=== PATIENT | male | born 1970 | race Caucasian/White ===

== ENCOUNTER → 2021-03-06 09:19 | Outpatient (BNVA) | payer MEDICAID, SELFPAY | PROVIDERS: Family Provider Family Medicine; PCP Family Medicine; Visit Provider Family Medicine | DX: Z00.00 Encounter for general adult medical examination without abnormal findings (principal); F10.10 Alcohol abuse, uncomplicated; F41.1 Generalized anxiety disorder | CPT/HCPCS: 80053; 85025 ==

== ENCOUNTER → 2021-06-26 14:20 | Outpatient (BNVA) | payer MEDICAID, SELFPAY | PROVIDERS: Family Provider Family Medicine; PCP Family Medicine; Visit Provider Family Medicine | DX: F10.10 Alcohol abuse, uncomplicated (principal) | CPT/HCPCS: 36416; 82962 ==

== ENCOUNTER → 2021-11-08 09:44 | Outpatient (BNVA) | payer MEDICAID, SELFPAY | PROVIDERS: Family Provider Family Medicine; PCP Family Medicine; Visit Provider Family Medicine | DX: M16.11 Unilateral primary osteoarthritis, right hip (principal) | CPT/HCPCS: 73502 ==

== ENCOUNTER 2022-01-14 10:20 | Emergency (ER) | payer MEDICAID, SELFPAY ==
--- NOTE | 2022-01-14 10:27 | ECG_ITS ---
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 Measurements Intervals [place] Rate: 53 P: 65 MS: 145 QRS: 57 QRSD: 98 T: 62 QT: 439 QTc: 413 Interpretive Statements SINUS BRADYCARDIA WITH SINUS ARRHYTHMIA Compared to ECG 02/28/2019 15:23:16 Sinus rhythm no longer present Prolonged QT interval no longer present Electronically Signed On 01-14-2022 12:58:19 CDT by Adriana Galvan M.D. [id number]
--- NOTE | 2022-01-14 10:30 | W.ED.SYNCOPE ---
HPI - Syncope General: Chief Complaint: Fall Stated Complaint: BACK/RIGHT HIP PAIN S/P FALL Time Seen by Provider: 01/14/22 10:22 Source: patient and EMS Mode of arrival: EMS Limitations: no limitations History of Present Illness: 51-year-old male who states that he was walking to the gas station this morning states that he put on a sweater and sweatpants and on his walk he felt like he got too hot and had a near syncopal event. He states that he did go to the ground he does not believe he had a full syncopal event but felt very lightheaded denies any chest pain or headache states he feels improved since being out he currently. No vomiting or diarrhea. Associated symptoms: Deny abdominal pain, chest pain, fever(s), headache(s) or nausea Review of Systems Const: Denies: fever(s), chills, body aches or change in appetite Eyes: Denies: blurry vision or eye discomfort ENMT: Denies: throat pain or dental pain Card: Denies: chest pain Resp: Denies: dyspnea GI: Denies: abdominal pain, nausea, vomiting or diarrhea : Denies: dysuria Musc: Denies: neck pain or back pain Skin/Breast: Denies: rash Neuro: Denies: headache(s) Psych: Denies: depression Blaise/Lymph: Denies: easy bruising All/Imm: Denies: urticaria PFSH ED PFSH: Medical History Alcohol abuse Arthritis of right hip Chronic lumbar radiculopathy Generalized anxiety disorder Impetigo Social History Smoking and tobacco status: current every day smoker Alcohol intake: current Adopted: No Caregiver/support person: No Lives independently: Yes Current occupational status: unemployed History of recent travel: No Current gender identity: Male Physical Exam Const: COMMON NORMALS: no acute distress, patient oriented x3 and healthy appearing HENMT: COMMON NORMALS: normocephalic and atraumatic HEAD & SCALP: normocephalic and atraumatic Eye: COMMON NORMALS: Equal, round and reactive pupils present and EOMs intact bilaterally PUPIL: Yes Equal, round and reactive pupils present Neck/C-Spine: COMMON NORMALS: full ROM and supple Chest: COMMONS NORMALS: normal inspection of the chest and normal palpation of entire chest wall Resp: COMMON NORMALS: normal respiratory effort, No retractions, No use of accessory muscles and clear to auscultation bilaterally AUSCULTATION: clear to auscultation bilaterally Cardio: COMMON NORMALS: regular rate, regular rhythm and No murmurs present (Cardio) RATE: regular rate RHYTHM: regular rhythm GI: COMMON NORMALS: Normal to inspection, nondistended, normoactive bowel sounds present, Soft to palpation, non-tender and no masses PALPATION: Yes Soft to palpation Extremity: COMMON NORMALS: normal to inspection and full ROM Neuro: COMMON NORMALS: patient oriented x3, moves all extremities and no focal motor deficits Psych: COMMON NORMALS: mental status grossly normal, Normal thought process present and cooperative THOUGHT PROCESS: Normal thought process present Skin: COMMON NORMALS: no rashes or lesions noted and no wounds GENERAL SKIN EXAM: no rashes or lesions noted Course Vital Signs: Vital signs: Vital Signs Pulse Rate 52 L 01/14/22 10:45 Respiratory Rate 12 01/14/22 10:45 Blood Pressure 144/100 01/14/22 10:45 Pulse Oximetry 100 01/14/22 10:45 MDM - Syncope Medical Decision Making Patient presents here with a near syncopal event. Patient is well-appearing here lab work is all normal he feels much improved he is stable for discharge she is to return if worsening he understands agrees to plan. Lab Data : 01/14/22 11:35 01/14/22 11:35 Laboratory Results WBC 8.6 10^3/uL (4.0-10.0) 01/14/22 11:35 RBC 5.21 10^6/uL (4.1-5.3) 01/14/22 11:35 Hgb 16.7 g/dL (11.7-16.6) H 01/14/22 11:35 Hct 50.0 % (42.0-52.0) 01/14/22 11:35 MCV 96.0 fl (80-94) H 01/14/22 11:35 MCH 32.1 pg (28.0-34.0) 01/14/22 11:35 MCHC 33.4 g/dL (30.0-36.0) 01/14/22 11:35 RDW 11.9 % (12.1-15.1) L 01/14/22 11:35 Plt Count 211 10^3/cmm (130-400) 01/14/22 11:35 MPV 11.2 fL (7.4-10.4) H 01/14/22 11:35 Neut % (Auto) 66.0 % 01/14/22 11:35 Lymph % (Auto) 25.6 % 01/14/22 11:35 [place] % (Auto) 6.8 % 01/14/22 11:35 Eos % (Auto) 0.6 % 01/14/22 11:35 Baso % (Auto) 0.8 % 01/14/22 11:35 Neut # (Auto) 5.66 10^3/uL (1.8-7.7) 01/14/22 11:35 Lymph # (Auto) 2.2 10^3/uL (0.8-4.8) 01/14/22 11:35 [place] # (Auto) 0.6 10^3/uL (0.2-0.9) 01/14/22 11:35 Eos # (Auto) 0.1 10^3/uL (0.0-0.8) 01/14/22 11:35 Baso # (Auto) 0.1 10^3/uL (0.0-0.1) 01/14/22 11:35 Nucleated RBC % (auto) 0 % 01/14/22 11:35 Nucleated RBCs # 0.0 /100WBC 01/14/22 11:35 Sodium 141 mmol/L (136-145) 01/14/22 11:35 Potassium 4.0 mmol/L (3.5-5.1) 01/14/22 11:35 Chloride 106 mmol/L (98-107) 01/14/22 11:35 Carbon Dioxide 27 mmol/L (22-29) 01/14/22 11:35 Anion Gap 12.0 (5-19) 01/14/22 11:35 BUN 9 mg/dL (6-20) 01/14/22 11:35 Creatinine 0.8 mg/dL (0.7-1.2) 01/14/22 11:35 GFR Calculation 102.3 mL/min (90-130) 01/14/22 11:35 Glucose 100 mg/dL (65-115) 01/14/22 11:35 Calculated Osmolality 291 mOsm/kg (285-295) 01/14/22 11:35 Calcium 9.7 mg/dL (8.5-10.5) 01/14/22 11:35 Total Bilirubin 0.5 mg/dL (0.15-1.2) 01/14/22 11:35 ALT 41 U/L (0-41) 01/14/22 11:35 Alkaline Phosphatase 92 IU/L (40-130) 01/14/22 11:35 Total Protein 8.0 g/dL (6.6-8.7) 01/14/22 11:35 Albumin 4.4 g/dL (3.5-5.2) 01/14/22 11:35 Globulin 3.6 g/dL (1.3-4.6) 01/14/22 11:35 EKG Data EKG 1: I personally reviewed and interpreted this EKG as follows: EKG interpretation date: 01/14/22 EKG interpretation time: 10:38 Interpretation: sinus fili hr [address] or t wave abnormalities qrs 98 qtc 421 Discharge Plan Discharge Patient Disposition: Home Clinical Impression: Near syncope Condition: Stable Prescriptions: No Action pantoprazole [Protonix] 40 mg tablet,delayed release (DR/EC) 40 mg PO DAILY 90 Days Qty: 90 3RF alprazolam 0.5 mg tablet 0.5 mg PO TID PRN (Reason: anxiety) 30 Days Qty: 75 5RF carisoprodol 350 mg tablet 350 mg PO BID 30 Days Qty: 60 5RF lactulose [Enulose] 10 gram/15 mL solution See Rx Instructions .ROUTE .COMPLEX Qty: 1200 5RF Dose Instruction: TAKE 30 ML (2 TABLESPOONFULL) BY MOUTH TWICE DAILY Rx Instructions: TAKE 30 ML (2 TABLESPOONFULL) BY MOUTH TWICE DAILY pregabalin [Lyrica] 100 mg capsule 100 mg PO BID Qty: 60 5RF hydrocodone-acetaminophen 10-325 mg tablet 1 tab PO Q6H PRN (Reason: pain) 30 Days Qty: 120 0RF Discharge Orders: Discharge ED (Routine); Ordered 01/14/22 Ordered By: Catherine Hernandez Referrals: Ulisses Monroe MD [Primary Care Provider] - 1-3 days Discharge Diet: Advance as tolerated Discharge Activity: Resume usual activity Patient Instructions: Near Syncope (ED) Coding Level of Care Code ED Schedule Checker for Ashlee Fwerin Exam Comprehensive
[2022-01-14] MEDS: sodium chloride 0.9% 1,000 ML 999 ML IV (10:43)
[2022-01-14 10:45] VITALS: BP 144/100; PULSE 52; RESP 12; O2SAT 100; BMI 22.3
[2022-01-14 11:48] LABS: Basophils # 0.1 10^3/uL (0.0-0.1); Basophils % 0.8 %; Eosinophils # 0.1 10^3/uL (0.0-0.8); Eosinophils % 0.6 %; Hemoglobin 16.7 g/dL (11.7-16.6); Lymphocytes # 2.2 10^3/uL (0.8-4.8); Lymphocytes % 25.6 %; Mean Corpuscular HGB Conc 33.4 g/dL (30.0-36.0); Mean Corpuscular Hemoglobin 32.1 pg (28.0-34.0); Mean Platelet Volume 11.2 fL (7.4-10.4); Monocytes # 0.6 10^3/uL (0.2-0.9); Monocytes % 6.8 %; Neutrophils # 5.66 10^3/uL (1.8-7.7); Nucleated Red Blood Cells % 0 %; Platelet Count 211 10^3/cmm (130-400); Red Blood Count 5.21 10^6/uL (4.1-5.3); Red Cell Distribution Width 11.9 % (12.1-15.1); White Blood Count 8.6 10^3/uL (4.0-10.0)
[2022-01-14 12:06] LABS: Alanine Aminotransferase 41 U/L (0-41); Albumin Level 4.4 g/dL (3.5-5.2); Alkaline Phosphatase 92 IU/L (40-130); Aspartate Amino Transferase 46 U/L (0-40); Blood Urea Nitrogen 9 mg/dL (6-20); Calcium 9.7 mg/dL (8.5-10.5); Carbon Dioxide 27 mmol/L (22-29); Chloride 106 mmol/L (98-107); Globulin 3.6 g/dL (1.3-4.6); Glomerular Filtration Rate 102.3 mL/min (90-130); Glucose 100 mg/dL (65-115); Osmolality Calculated 291 mOsm/kg (285-295); Sodium 141 mmol/L (136-145); Total Bilirubin 0.5 mg/dL (0.15-1.2)
[2022-01-14 12:09] VITALS: BP 144/100; PULSE 46; RESP 15; O2SAT 100
== END 2022-01-14 12:18 | disposition home or self-care (01) ==
PROVIDERS: Emergency Provider Emergency Medicine; PCP Family Medicine
DX: R55 Syncope and collapse (principal)
CPT/HCPCS: 80053; 85025; 93005; 96360; 99283; J7030

== ENCOUNTER 2022-01-15 21:15 | Emergency (ER) | payer MEDICAID, SELFPAY ==
[2022-01-15 21:29] VITALS: BP 100/69; PULSE 114; RESP 16; TEMP 37; O2SAT 97
--- NOTE | 2022-01-15 21:38 | XRR_ITS ---
PROCEDURE INFORMATION: Exam: XR Right Hip Exam date and time: 01/15/2022 10:30 PM Age: 51 years old Clinical indication: Hip pain; Right hip; Patient HX: Hip xray was ordered pelvis wasn't specified; Additional info: Fall, pain TECHNIQUE: Imaging protocol: Radiologic exam of the Right hip. Views: 1 view hip with pelvis when performed. COMPARISON: CR XR hip RT 2-3V wo/w pel* [id number] 11/08/2021 9:48 AM FINDINGS: Bones/joints: Severe right hip osteoarthritis. Soft tissues: Unremarkable. XR/XR hip RT 2-3V wo/w pel* [id number] IMPRESSION: 1. Negative for fracture or dislocation 2. Severe right hip osteoarthritis.
--- NOTE | 2022-01-15 21:39 | ED_ITS ---
HPI - Fall General: Chief Complaint: Fall Stated Complaint: hip pain Time Seen by Provider: 01/15/22 21:38 History of Present Illness: 51-year-old male patient comes in today for injury to the right hip. Patient has pain on the lateral hip at the trochanter area on palpation. Patient is homeless. He has been looking for a place to live. Patient appears in no acute distress. Associated symptoms-after fall: Denies chest pain Review of Systems General: Reports: 10 or more systems reviewed and unremarkable except in HPI and below Card: Denies: chest pain Resp: Denies: dyspnea Musc: Reports: joint pain (Right hip pain) [facility] ED PFSH: Medical History Alcohol abuse Arthritis of right hip Chronic lumbar radiculopathy Generalized anxiety disorder Impetigo Social History Smoking and tobacco status: current every day smoker Alcohol intake: current Adopted: No Caregiver/support person: No Lives independently: Yes Current occupational status: unemployed History of recent travel: No Current gender identity: Male Physical Exam Const: COMMON NORMALS: alert HENMT: COMMON NORMALS: atraumatic HEAD & SCALP: atraumatic Neck/C-Spine: COMMON NORMALS: full ROM Resp: COMMON NORMALS: normal respiratory effort and clear to auscultation bilaterally AUSCULTATION: clear to auscultation bilaterally Cardio: COMMON NORMALS: regular rate and regular rhythm RATE: regular rate RHYTHM: regular rhythm Back/Pelvis: COMMON NORMALS: thoracic and lumbar spine normal to inspection Extremity: RIGHT LOWER EXTREMITY: Yes hip joint (Right lateral hip tenderness) Right hip: Yes inspection, Yes palpation and Yes ROM Neuro: SENSORIUM/ORIENTATION: Yes alert Course Vital Signs: Vital signs: Vital Signs Temperature 98.6 F 01/15/22 21:29 Pulse Rate 114 H 01/15/22 21:29 Respiratory Rate 16 01/15/22 21:29 Blood Pressure 100/69 01/15/22 21:29 Pulse Oximetry 97 01/15/22 21:29 MDM - Fall Medical Decision Making Patient comes in today for complaints of right hip pain. On exam patient has normal range of motion of the hip. Patient has tenderness to palpation. Distal pulses and sensation are intact. Differential diagnosis includes contusion, fracture, dislocation. No fracture was noted on the x-rays. Reviewed exam with patient with recommendations for acetaminophen or ibuprofen for pain. Activity as tolerated. Follow-up with primary care for further instruction. Discharge Plan Discharge Patient Disposition: Home Clinical Impression: Arthritis of hip Contusion of hip, right Qualifiers: Encounter type: initial encounter Qualified Code(s): S70.01XA - Contusion of right hip, initial encounter Condition: Stable Prescriptions: No Action pantoprazole [Protonix] 40 mg tablet,delayed release (DR/EC) 40 mg PO DAILY 90 Days Qty: 90 3RF alprazolam 0.5 mg tablet 0.5 mg PO TID PRN (Reason: anxiety) 30 Days Qty: 75 5RF carisoprodol 350 mg tablet 350 mg PO BID 30 Days Qty: 60 5RF lactulose [Enulose] 10 gram/15 mL solution See Rx Instructions .ROUTE .COMPLEX Qty: 1200 5RF Dose Instruction: TAKE 30 ML (2 TABLESPOONFULL) BY MOUTH TWICE DAILY Rx Instructions: TAKE 30 ML (2 TABLESPOONFULL) BY MOUTH TWICE DAILY pregabalin [Lyrica] 100 mg capsule 100 mg PO BID Qty: 60 5RF hydrocodone-acetaminophen 10-325 mg tablet 1 tab PO Q6H PRN (Reason: pain) 30 Days Qty: 120 0RF Discharge Orders: Discharge ED (Routine); Ordered 01/15/22 Ordered By: Toney Pink Referrals: Ulisses Monroe MD [Primary Care Provider] - Discharge Diet: Usual diet Discharge Activity: Increase activity as tolerated Patient Instructions: Contusion in Adults (ED) Activity Restrictions/Additional Instructions: Home and rest. Activity as tolerated. Use ice or heat to the area for comfort. Use acetaminophen or ibuprofen for pain. Coding Level of Care Code ED Physical Therapy Technician for Ashlee Fwd Exam Detailed
[2022-01-15] MEDS: ibuprofen 200 mg Tablet 400 MG PO (21:56)
== END 2022-01-15 22:57 | disposition home or self-care (01) ==
PROVIDERS: Emergency Provider Nurse Practitioner Family; PCP Family Medicine
DX: M16.11 Unilateral primary osteoarthritis, right hip (principal); S70.01XA Contusion of right hip, initial encounter; W19.XXXA Unspecified fall, initial encounter; Z59.02 Unsheltered homelessness
CPT/HCPCS: 73502; 99283

== ENCOUNTER 2023-10-24 16:42 | Emergency (ER) | payer MEDICAID, SELFPAY ==
[2023-10-24 16:46] VITALS: BP 119/78; PULSE 111; RESP 18; TEMP 36.6; O2SAT 98
--- NOTE | 2023-10-24 17:06 | ED.C_ITS ---
HPI - Psych 2 General: Chief Complaint: Psychiatric Symptoms Stated Complaint: MHE, sent from dr palacios Time Seen by Provider: 10/24/23 16:55 Source: patient Mode of arrival: ambulatory Limitations: no limitations History of Present Illness: 53-year-old male sent here from the [facility] for psych eval patient states he has been upset because not been able to get his hydrocodone or his Xanax. He states that he did call the pharmacy and made threats to burn it down he states that he was just angry he was not being truthful he denies SI or HI. Associated symptoms: Deny depression Review of Systems 2 Const: Denies: fever(s), chills, body aches or change in appetite Eyes: Denies: blurry vision or eye discomfort ENMT: Denies: throat pain or dental pain Card: Denies: chest pain Resp: Denies: dyspnea GI: Denies: abdominal pain, nausea, vomiting or diarrhea : Denies: dysuria Musc: Denies: neck pain or back pain Skin/Breast: Denies: rash Neuro: Denies: headache(s) Psych: Denies: depression Blaise/Lymph: Denies: easy bruising All/Imm: Denies: urticaria PFSH ED 2 PFSH: Medical History Spinal stenosis at L4-L5 level Arthritis of right hip Impetigo Alcohol abuse Generalized anxiety disorder Chronic lumbar radiculopathy Social History Smoking and tobacco/nicotine status: current every day tobacco/nicotine user Alcohol intake: current Substance/Drug Use: never Adopted: No Caregiver/support person: No Lives independently: Yes Current occupational status: unemployed Do you think of yourself as: Straight/Heterosexual Current gender identity: Male Physical Exam 2 Const: COMMON NORMALS: no acute distress, patient oriented x3 and healthy appearing HENMT: COMMON NORMALS: normocephalic and atraumatic HEAD & SCALP: n ormocephalic and atraumatic Eye: COMMON NORMALS: Equal, round and reactive pupils present and EOMs intact bilaterally PUPIL: Yes Equal, round and reactive pupils present Neck/C-Spine: COMMON NORMALS: full ROM and supple Chest: COMMONS NORMALS: normal inspection of the chest and normal palpation of entire chest wall Resp: COMMON NORMALS: normal respiratory effort, No retractions, No use of accessory muscles and clear to auscultation bilaterally AUSCULTATION: clear to auscultation bilaterally Cardio: COMMON NORMALS: regular rate, regular rhythm and No murmurs present (Cardio) RATE: regular rate RHYTHM: regular rhythm GI: COMMON NORMALS: Normal to inspection, nondistended, normoactive bowel sounds present, Soft to palpation, non-tender and no masses PALPATION: Yes Soft to palpation Extremity: COMMON NORMALS: normal to inspection and full ROM Neuro: COMMON NORMALS: patient oriented x3, moves all extremities and no focal motor deficits Psych: COMMON NORMALS: mental status grossly normal, Normal thought process present and cooperative THOUGHT PROCESS: Normal thought process present Skin: COMMON NORMALS: no rashes or lesions noted and no wounds GENERAL SKIN EXAM: no rashes or lesions noted Course 2 Vital Signs: Vital signs: Vital Signs Temperature 97.9 F 10/24/23 16:46 Pulse Rate 111 H 10/24/23 16:46 Respiratory Rate 18 10/24/23 16:46 Blood Pressure 119/78 10/24/23 16:46 Pulse Oximetry 98 10/24/23 16:46 Oxygen Delivery Me thod Room Air 10/24/23 16:46 MDM - Psych Medical Decision Making Patient presents for some anxiety along with anger over not getting his narcotics filled. He is denying SI and HI patient was seen by psychiatrist Dr. Garcia who agrees patient does not require inpatient he is stable for discharge. Medical Records I reviewed the patient's medical records. Lab Data I reviewed the patient's lab results. 10/24/23 18:16 10/24/23 18:16 Laboratory Results WBC 7.92 10^3/uL (3.29-11.43) 10/24/23 18:16 RBC 4.39 10^6/uL (3.85-5.65) 10/24/23 18:16 Hgb 14.30 g/dL (11.27-16.99) 10/24/23 18:16 Hct 41.9 % (37-53) 10/24/23 18:16 MCV 95.4 fl (82-101) 10/24/23 18:16 MCH 32.6 pg (27-33) 10/24/23 18:16 MCHC 34.1 g/dL (30-55) 10/24/23 18:16 RDW 12.1 % (12.1-15.1) 10/24/23 18:16 Plt Count 258 10^3/cmm (157-399) 10/24/23 18:16 MPV 9.8 fL (7.4-10.4) 10/24/23 18:16 Neut % (Auto) 41.7 % 10/24/23 18:16 Lymph % (Auto) 48.9 % 10/24/23 18:16 [place] % (Auto) 6.9 % 10/24/23 18:16 Eos % (Auto) 1.4 % 10/24/23 18:16 Baso % (Auto) 1.0 % 10/24/23 18:16 Neut # (Auto) 3.30 10^3/uL (1.8-7.7) 10/24/23 18:16 Lymph # (Auto) 3.9 10^3/uL (0.8-4.8) 10/24/23 18:16 [place] # (Auto) 0.6 10^3/uL (0.2-0.9) 10/24/23 18:16 Eos # (Auto) 0.1 10^3/uL (0.0-0.8) 10/24/23 18:16 Baso # (Auto) 0.1 10^3/uL (0.0-0.1) 10/24/23 18:16 Nucleated RBC % (auto) 0 % 10/24/23 18:16 Nucleated RBCs # 0.0 /100WBC 10/24/23 18:16 Sodium 142 mmol/L (136-145) 10/24/23 18:16 Potassium 3.8 mmol/L (3.5-5.1) 10/24/23 18:16 Chloride 107 mmol/L (98-107) 10/24/23 18:16 Carbon Dioxide 23 mmol/L (22-29) 10/24/23 18:16 Anion Gap 15.8 (5-19) 10/24/23 18:16 BUN 21 mg/dL (6-20) H 10/24/23 18:16 Creatinine 0.9 mg/dL (0.7-1.2) 10/24/23 18:16 GFR Calculation 88.6 mL/min (90-130) L 10/24/23 18:16 Glucose 81 mg/dL (65-115) 10/24/23 18:16 Calculated Osmolality 296 mOsm/kg (285-295) H 10/24/23 18:16 Calcium 9.4 mg/dL (8.5-10.5) 10/24/23 18:16 Total Bilirubin 0.4 mg/dL (0.15-1.2) 10/24/23 18:16 AST 48 U/L (0-40) H 10/24/23 18:16 ALT 35 U/L (0-41) 10/24/23 18:16 Alkaline Phosphatase 73 U/L (40-130) 10/24/23 18:16 Total Protein 8.0 g/dL (6.6-8.7) 10/24/23 18:16 Albumin 4.4 g/dL (3.5-5.2) 10/24/23 18:16 Globulin 3.6 g/dL (1.3-4.6) 10/24/23 18:16 Salicylates < 0.3 mg/dL (3-10) L 10/24/23 18:16 Urine Opiates Screen Negative ng/mL (Negative) 10/24/23 17:15 Acetaminophen < 5.0 ug/mL (10-30) L 10/24/23 18:16 Ur Barbiturates Screen Negative ng/mL (Negative) 10/24/23 17:15 Ur Phencyclidine Scrn Negative ng/mL (Negative) 10/24/23 17:15 Ur Amphetamines Screen Positive ng/mL (Negative) H 10/24/23 17:15 U Benzodiazepines Scrn Negative ng/mL (Negative) 10/24/23 17:15 Urine Cocaine Screen Negative ng/mL (Negative) 10/24/23 17:15 U Marijuana (THC) Screen Positive ng/mL (Negative) H 10/24/23 17:15 Ethyl Alcohol < 10 mg/dL (0-10) 10/24/23 18:16 No radiology studies performed this visit Discharge Plan Discharge Patient Disposition: Home Clinical Impression: Generalized anxiety disorder Condition: Stable Prescriptions: No Action baclofen 20 mg tablet 20 mg PO TID PRN (Reason: muscle spasm) Qty: 60 0RF lactulose [Enulose] 10 gram/15 mL solution See Rx Instructions .ROUTE .COMPLEX Qty: 1200 5RF Dose Instruction: TAKE 30 ML (2 TABLESPOONFULL) BY MOUTH TWICE DAILY Rx Instructions: TAKE 30 ML (2 TABLESPOONFULL) BY MOUTH TWICE DAILY buspirone 10 mg tablet 10 mg PO TID 15 Days Qty: 45 0RF Rx Instructions: trial for nerves instead of xanax (alprazolam) alprazolam 0.5 mg tablet 0.5 mg PO TID PRN (Reason: anxiety) 30 Days Qty: 90 2RF hydrocodone-acetaminophen 10-325 mg tablet 1 tab PO Q6H PRN (Reason: pain) 30 Days Qty: 120 0RF pantoprazole [Protonix] 40 mg tablet,delayed release (DR/EC) 40 mg PO DAILY 90 Days Qty: 90 3RF pregabalin 150 mg capsule 150 mg PO BID Qty: 60 5RF Discharge Orders: Discharge ED (Routine); Ordered 10/24/23 Ordered By: Catherine Hernandez Referrals: Ulisses Palacios MD [Primary Care Provider] - 1-3 days Discharge Diet: Advance as tolerated Discharge Activity: Resume usual activity Patient Instructions: Anxiety (ED) Coding Level of Care Code ED Hairspring Assembler for Ashlee Aceves
[2023-10-24 17:55] LABS: Amphetamines Screen Urine Positive (Negative); Barbiturates Screen Urine Negative (Negative); Benzodiazepines Screen Urine Negative (Negative); Cocaine Screen Urine Negative (Negative); Opiate Screen Urine Negative (Negative); PCP Screen Urine Negative (Negative); THC Screen Urine Positive (Negative)
[2023-10-24 18:21] LABS: Basophils # 0.1 10^3/uL (0.0-0.1); Eosinophils # 0.1 10^3/uL (0.0-0.8); Eosinophils % 1.4 %; Hematocrit 41.9 % (37-53); Lymphocytes # 3.9 10^3/uL (0.8-4.8); Lymphocytes % 48.9 %; Mean Corpuscular HGB Conc 34.1 g/dL (30-55); Mean Corpuscular Hemoglobin 32.6 pg (27-33); Mean Corpuscular Volume 95.4 fl (82-101); Mean Platelet Volume 9.8 fL (7.4-10.4); Monocytes # 0.6 10^3/uL (0.2-0.9); Monocytes % 6.9 %; Neutrophils % 41.7 %; Nucleated Red Blood Cells % 0 %; Platelet Count 258 10^3/cmm (157-399); Red Blood Count 4.39 10^6/uL (3.85-5.65); Red Cell Distribution Width 12.1 % (12.1-15.1); White Blood Count 7.92 10^3/uL (3.29-11.43)
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
[2023-10-24 19:31] LABS: Alanine Aminotransferase 35 U/L (0-41); Albumin Level 4.4 g/dL (3.5-5.2); Alkaline Phosphatase 73 U/L (40-130); Anion Gap 15.8 (5-19); Aspartate Amino Transferase 48 U/L (0-40); Blood Urea Nitrogen 21 mg/dL (6-20); Calcium 9.4 mg/dL (8.5-10.5); Carbon Dioxide 23 mmol/L (22-29); Chloride 107 mmol/L (98-107); Globulin 3.6 g/dL (1.3-4.6); Glomerular Filtration Rate 88.6 mL/min (90-130); Glucose 81 mg/dL (65-115); Osmolality Calculated 296 mOsm/kg (285-295); Potassium 3.8 mmol/L (3.5-5.1); Sodium 142 mmol/L (136-145); Total Bilirubin 0.4 mg/dL (0.15-1.2)
[2023-10-24 19:32] LABS: Acetaminophen < 5.0 ug/mL (10-30); Alcohol Level < 10 mg/dL (0-10); Salicylate < 0.3 mg/dL (3-10)
[2023-10-24 20:46] VITALS: RESP 16
== END 2023-10-24 20:48 | disposition home or self-care (01) ==
PROVIDERS: Emergency Provider Emergency Medicine; PCP Family Medicine
DX: F41.1 Generalized anxiety disorder (principal); Z72.0 Tobacco use
CPT/HCPCS: 36415; 80053; 80306; 80307; 85025; 99283

== ENCOUNTER 2023-12-25 17:31 | Outpatient (CLI) | payer MEDICAID, SELFPAY ==
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
== END 2023-12-25 17:32 | disposition home or self-care (01) ==
LOC: RAD 17:33
PROVIDERS: PCP Family Medicine; Visit Provider Family Medicine
DX: S02.602A Fracture of unspecified part of body of left mandible, initial encounter for closed fracture (principal); Y04.2XXA Assault by strike against or bumped into by another person, initial encounter
CPT/HCPCS: 70100

== ENCOUNTER 2024-07-13 21:17 | Emergency (ER) | payer MEDICAID, SELFPAY ==
[2024-07-13 21:19] VITALS: BP 134/80; PULSE 102; RESP 18; TEMP 36.7; O2SAT 97; BMI 21.5
--- NOTE | 2024-07-13 21:25 | XRR_ITS ---
PROCEDURE INFORMATION: Exam: XR Right Hip Exam date and time: 07/13/2024 9:47 PM Age: 53 years old Clinical indication: Injury or trauma; Fall; Blunt trauma (contusions or hematomas); Right; Hip and pelvic region; Additional info: Fall/rt hip pain, w/ pelvis TECHNIQUE: Imaging protocol: Radiologic exam of the right hip. Views: 1 view hip with pelvis when performed. COMPARISON: CR XR hip RT 2-3V wo/w pel* [id number] 01/15/2022 10:30 PM FINDINGS: Bones/joints: Nhfd-[id number]-latg-right degenerative changes of the hip joints. No acute displaced fractures. Soft tissues: Unremarkable. Intraperitoneal space: The pelvis is intact. XR/XR hip RT 2-3V wo/w pel* [id number] IMPRESSION: As above.
--- NOTE | 2024-07-13 21:28 | ED_ITS ---
HPI - Extremity Problem General: Chief complaint: Extremity Injury, Lower Stated complaint: HIP PAIN Time Seen by Provider: 07/13/24 21:19 Source: patient and police Mode of arrival: EMS Limitations: no limitations History of Present Illness: Patient is a 53-year-old male with past medical history of right hip arthritis and chronic lumbar radiculopathy who presents to the emergency department by EMS from custodial due to right hip pain onset an hour and a half prior to arrival. Patient states he always deals with right hip pain, he takes [place] for pain. States tonight that he had an incident where he stumbled and caught himself, however he tweaked his right hip in the process and states he felt a pop. Has been ambulatory since, secondary to pain. States the pain is shooting down his right leg. EMS did not report any noticing of rotation or shortening of the leg. He has no previous surgical history or fractures of that right hip. No distal sensory changes noted. He did not hit his head and no other injury suffered with the fall. States he took Tylenol about an hour prior to coming in. MD Complaint: extremity pain and joint pain Onset (ago): hour(s) Pain Consistency: constant Location: right and lower extremity Quality: sharp Radiation: distal Exacerbating factors: range of motion, weight bearing, walking, exertion and palpation Associated symptoms: Deny chest pain, fever(s) or rash Related Data Previous Rx's Medication Instructions Recorded lactulose 10 gram/15 mL oral See Rx Instructions .Route 11/09/21 solution (Enulose) .COMPLEX #1,200 mL baclofen 20 mg tablet 20 mg PO TID PRN muscle spasm #60 05/29/23 tabs buspirone 10 mg tablet 10 mg PO TID 15 days #45 tabs 06/17/23 pantoprazole 40 mg tablet,delayed 40 mg PO DAILY 90 days #90 tabs 12/20/23 release (Protonix) pregabalin 150 mg capsule 150 mg PO BID #60 caps 01/16/24 alprazolam 0.5 mg tablet 0.5 mg PO TID PRN anxiety 30 days 05/23/24 #90 tabs hydrocodone 10 mg-acetaminophen 1 tab PO Q6H PRN pain 30 days #120 06/10/24 325 mg tablet tabs prednisone 20 mg tablet 40 mg (2 x 20 mg) PO ONCE 5 days 07/13/24 #10 tabs Allergies Allergy/AdvReac Type Severity Reaction Status Date / Time Penicillins Allergy Mild rash Verified 06/10/24 14:09 lactulose AdvReac Mild unknown Verified 06/10/24 14:09 Review of Systems General: Reports: 10 or more systems reviewed and unremarkable except in HPI and below Const: Denies: fever(s) or chills Card: Denies: chest pain Resp: Denies: dyspnea or productive cough GI: Denies: abdominal pain, nausea, vomiting or diarrhea : Denies: flank pain Musc: Reports: extremity pain (Right lower extremity) and joint pain (Right hip); Denies: neck pain, back pain, extremity swelling, joint swelling, joint redness, joint warmth, limited range of motion or muscle weakness Skin/Breast: Denies: rash Neuro: Denies: headache(s), numbness in extremities or weakness in extremities PFSH ED PFSH: Medical History Spinal stenosis at L4-L5 level Arthritis of right hip Impetigo Alcohol abuse Generalized anxiety disorder Chronic lumbar radiculopathy Social History Smoking and tobacco/nicotine status: current every day tobacco/nicotine user Alcohol intake: current Substance/Drug Use: current Adopted: No Caregiver/support person: No Lives independently: Yes Current occupational status: unemployed Do you think of yourself as: Straight/Heterosexual Current gender identity: Male Physical Exam Const: COMMON NORMALS: no acute distress, patient oriented x3, no limitations, healthy appearing, alert and well nourished HENMT: COMMON NORMALS: normocephalic and atraumatic HEAD & SCALP: normocephalic and atraumatic Neck/C-Spine: COMMON NORMALS: full ROM, supple and no meningeal signs Resp: COMMON NORMALS: normal respiratory effort, No use of accessory muscles and clear to auscultation bilaterally AUSCULTATION: clear to auscultation bilaterally Cardio: COMMON NORMALS: regular rate and regular rhythm RATE: regular rate RHYTHM: regular rhythm Back/Pelvis: COMMON NORMALS: thoracic and lumbar spine normal to inspection and no thoracic nor lumbar tenderness LUMBAR SPINE/LOWER BACK: Yes straight leg raise positive right OTHER: Mild reproducible tenderness to palpation to the right paralumbar muscles. Extremity: COMMON NORMALS: normal to inspection, capillary refill normal, no joint enlargement and no clubbing, cyanosis or edema NARRATIVE EXTREMITY EXAM: Pain with active and passive range of motion at the right hip. Endorsing reproducible tenderness to very light palpation over the right hip and anterior proximal thigh. No shortening or rotation of the right lower extremity. Distal pulses 2+. Neuro: COMMON NORMALS: patient oriented x3, moves all extremities, no focal motor deficits and no sensory deficits noted SENSORIUM/ORIENTATION: Yes alert MENINGEAL SIGNS: Yes no meningeal signs Skin: COMMON NORMALS: no rashes or lesions noted GENERAL SKIN EXAM: no rashes or lesions noted Course Vital Signs: Vital signs: Vital Signs Temperature 98.0 F 07/13/24 21:19 Pulse Rate 102 H 07/13/24 21:19 Respiratory Rate 18 07/13/24 21:19 Blood Pressure 134/80 07/13/24 21:19 Pulse Oximetry 97 07/13/24 21:19 Oxygen Delivery Me thod Room Air 07/13/24 21:19 MDM - Extremity (Nontraumatic) Medical Decision Making Patient has history of arthritis as well as lumbar radiculopathy. [facility] of his right [facility]. X-ray negative for any fracture or dislocation. Was some evidence of degenerative changes, potentially some arthritis and this could also pose as a lumbar radiculopathy. He notes some somewhat improvement after receiving steroid shot here, will treat with short course of steroids back at custodial and have him follow-up with primary care for any further concerns. He agrees with plan for discharge at this time. He will be discharged back to custodial. Lab Data Radiology Impressions Hip/Pelvis X-Ray 07/13/24 21:25 IMPRESSION: As above. All radiology interpretation(s) finalized by discharge Discharge Plan Discharge Patient Disposition: Home Clinical Impression: Arthritis of right hip Condition: Stable Prescriptions: New prednisone 20 mg tablet 40 mg PO ONCE 5 Days Qty: 10 0RF No Action baclofen 20 mg tablet 20 mg PO TID PRN (Reason: muscle spasm) Qty: 60 0RF pregabalin 150 mg capsule 150 mg PO BID Qty: 60 5RF hydrocodone-acetaminophen 10-325 mg tablet 1 tab PO Q6H PRN (Reason: pain) 30 Days Qty: 120 0RF lactulose [Enulose] 10 gram/15 mL solution See Rx Instructions .ROUTE .COMPLEX Qty: 1200 5RF Dose Instruction: TAKE 30 ML (2 TABLESPOONFULL) BY MOUTH TWICE DAILY Rx Instructions: TAKE 30 ML (2 TABLESPOONFULL) BY MOUTH TWICE DAILY buspirone 10 mg tablet 10 mg PO TID 15 Days Qty: 45 0RF Rx Instructions: trial for nerves instead of xanax (alprazolam) pantoprazole [Protonix] 40 mg tablet,delayed release (DR/EC) 40 mg PO DAILY 90 Days Qty: 90 3RF alprazolam 0.5 mg tablet 0.5 mg PO TID PRN (Reason: anxiety) 30 Days Qty: 90 2RF Discharge Orders: Discharge ED (Routine); Ordered 07/13/24 Ordered By: Mandeep Velarde Referrals: Ulisses Monroe MD [Primary Care Provider] - Patient Instructions: Arthritis (ED) Activity Restrictions/Additional Instructions: See attached patient instructions for further education. Take steroids as prescribed. Rest and recovery, gradually increase her activities as you start to have improvement in your pain. You may alternate ibuprofen and Tylenol for pain. Please follow-up with primary care and return with any new or worsening. Coding Level of Care Code ED Network Control Operators Supervisor for Ashlee Aceves
[2024-07-13] MEDS: dexamethasone 10 mg/mL INJ IM (22:17)
[2024-07-13] MEDS: ketorolac 60 mg/2 mL INJ IM (22:17)
[2024-07-13 23:41] VITALS: BP 122/72; PULSE 91; RESP 18; O2SAT 98
== END 2024-07-13 23:48 | disposition home or self-care (01) ==
PROVIDERS: Emergency Provider Physician Assistant; PCP Family Medicine
DX: M16.11 Unilateral primary osteoarthritis, right hip (principal); Z72.0 Tobacco use
CPT/HCPCS: 73502; 96372; 99284; J1100; J1885